=== PATIENT | female | born 1990 | race Two or more races ===

== ENCOUNTER 2019-01-18 13:23 | Emergency (ER) | payer SELFPAY ==
[~2019-01-18] VITALS: Ht 157.5 cm; Wt 61.2 kg
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
[2019-01-18 13:42] VITALS: BP 123/78
--- NOTE | 2019-01-18 13:50 | NUR ---
ED Nurse Note: pt stated that she is not and cant undergo xray. waiver signed.
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
[2019-01-18] MEDS ORDERED: ROBAXIN500 MG PO (14:56)
[2019-01-18] MEDS ORDERED: NAPROXEN500 M2 ORAL (14:56)
[2019-01-18 15:07] VITALS: BP 125/65
--- NOTE | 2019-01-18 15:07 | NUR ---
ER DISCHARGE NOTE: Patient is cleared to be discharged per ERMD, pt is aox4, on room air, with stable vital signs. pt was given dc and prescription instructions, pt was able to verbalize understanding, pt id band removed. pt is able to ambulate with steady gait. pt took all belongings.
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
== END 2019-01-18 15:07 | disposition home or self-care (01) ==
LOC: EMR 13:50
DX: S16.1XXA Strain of muscle, fascia and tendon at neck level, initial encounter (principal); V43.62XA Car passenger injured in collision with other type car in traffic accident, initial encounter; Y92.410 Unspecified street and highway as the place of occurrence of the external cause
CPT/HCPCS: 72040; 81025; 99284